=== PATIENT | male | born 1975 ===

== ENCOUNTER 2018-05-28 13:03 | Emergency (ER) | payer MEDICAID ==
[2018-05-28 13:10] VITALS: BMI 26.6
[2018-05-28 13:13] VITALS: RESP 18
[2018-05-28] MEDS ORDERED: Sodium Chloride 0.9% 1,000 ML IV STA ×2 (13:23→14:40)
--- NOTE | 2018-05-28 13:42 | ED PDOC ---
Arrival/HPI - General Historian: Patient - History of Present Illness Time/Duration: 4-6 hours Symptom Onset: Gradual Symptom Course: Worsening Quality: Cramping Severity Level: 9 Activities at Onset: Significant Context: Work (factory) <Wali Rivers - Last Filed: 05/28/18 18:40> <Miky Rdz - Last Filed: 05/28/18 19:15> - General Chief Complaint: GI Problem Time Seen by Provider: 05/28/18 13:15 - History of Present Illness Narrative History of Present Illness (Text): 05/28/18 13:08 CC: Abdominal Pain HPI: Mr. Moyer is a 42 year old male with no significant past medical history who presents with crampy abdominal pain LLQ>RLQ. 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 Patient states there was little air in the truck and it was very hot. Patient said most recent vomit was red, but reports he ingested a peñaloza gatorade before vomiting. Patient also reports ingesting red peppers yesterday. Patient does not think he was vomiting blood. Patient decided to leave work and call the ambulance. Patient reports urine has been yellow without hematuria and formed BM without hematochezia. Patient reports weakness, headaches, dizziness, nausea, palpitations, but denies chest pain, back pain, fevers, chills, vision changes, leg pain, recent travel, sick contacts and weight changes. PMHx: denies PSHx: denies All: NKDA Social: 1 pint of Vodka daily x 6 years, denies tobacco and substance abuse Fam hx: Arthritis in the family, denies CVA, RI, Heart disease Meds: denies PCP: Dr. Hemanth Solomon (Wali Rivers) Past Medical History - Provider Review Nursing Documentation Reviewed: Yes - Travel History Have you recently traveled outside [place] w/in the past 3 mons?: No - Infectious Disease Hx of Infectious Diseases: None - Psychiatric Hx Substance Use: No - Anesthesia Hx Anesthesia: No <Wali Rivers - Last Filed: 05/28/18 18:40> Family/Social History - Physician Review Nursing Documentation Reviewed: Yes Family/Social History: Other (Arthritis) Smoking Status: Never Smoked Hx Alcohol Use: Yes Hx Substance Use: No <Wali Rivers - Last Filed: 05/28/18 18:40> Allergies/Home Meds <Wali Rivers - Last Filed: 05/28/18 18:40> <Miky Rdz - Last Filed: 05/28/18 19:15> Allergies/Adverse Reactions: Allergies No Known Allergies Allergy (Verified 05/28/18 13:10) Review of Systems - Physician Review All systems were reviewed & negative as marked: Yes - Review of Systems Constitutional: Fatigue Eyes: Normal. absent: Vision Changes ENT: Normal Respiratory: Normal Cardiovascular: Palpitations. absent: Chest Pain Gastrointestinal: Abdominal Pain, Nausea, Vomiting, Appetite Changes, Anorexia. absent: Stool Changes, Constipation, Diarrhea Musculoskeletal: Arthralgias Skin: Normal. absent: Rash, Pruritis Neurological: Headache, Dizziness. absent: Seizure Endocrine: Diaphoresis. absent: Polyuria, Polydipsia Hemo/Lymphatic: Normal Psychiatric: Anxiety <Wali Rivers - Last Filed: 05/28/18 18:40> Physical Exam Vital Signs Reviewed: Yes Temperature: Afebrile Blood Pressure: Hypertensive (mild) Pulse: Tachycardic Respiratory Rate: Normal Appearance: Positive for: Uncomfortable Pain Distress: Moderate Mental Status: Positive for: Alert and Oriented X 3 - Systems Exam Head: Present: Atraumatic, Normocephalic Pupils: Present: PERRL Extroacular Muscles: Present: EOMI Conjunctiva: Present: Normal Mouth: Present: Dry Neck: Present: Normal Range of Motion. No: JVD Respiratory/Chest: Present: Clear to Auscultation, Decreased Breath Sounds. No : Respiratory Distress, Accessory Muscle Use, Retracting, Tender to Palpation Cardiovascular: Present: Regular Rate and Rhythm, Normal S1, S2, Tachycardic Abdomen: Present: Tenderness (soft, LUQ>RUQ), Normal Bowel Sounds. No: Distention, Peritoneal Signs, Rebound, Guarding, McBurney's Point Tender, Rovsing's Sign Present Back: No: CVA Tenderness Upper Extremity: Present: Normal Inspection (no tremors noted) Lower Extremity: Present: Normal Inspection Neurological: Present: GCS=15, CN II-XII Intact, Speech Normal Skin: Present: Warm, Normal Color, Diaphoretic. No: Rashes Psychiatric: Present: Alert, Oriented x 3, Normal Insight, Normal Concentration <Wali Rivers - Last Filed: 05/28/18 18:40> Vital Signs Temp Pulse Resp BP Pulse Ox 05/28/18 19:05 98.2 F 93 H 18 140/74 96 05/28/18 18:25 98.2 F 93 H 18 140/74 96 05/28/18 13:04 97.8 F 117 H 18 130/92 H 97 Medical Decision Making <Wali Rivers - Last Filed: 05/28/18 18:40> <Miky Rdz - Last Filed: 05/28/18 19:15> ED Course and Treatment: 05/28/18 13:32 Impression: 42 year old male with no past medical history who presents with ETOH intoxication/withdrawal vs dehydration vs heat exhaustion Plan: IVF NS bolus ETOH, Salicylate and Acetaminophen serum levels CMP Cardiac isoenzymes Chest Portable X-ray Mg Coag studies CXR EKG Fingerstick glucose UA, UDS 05/28/18 14:06 CXR: No active disease Serum ETOH level 217 EKG: sinus tachy @101 bpm, no ST or T wave changes Ordered Zofran 4 mg IVP for ongoing nausea. QTc 492 - will continue to monitor 05/28/18 14:41 On reassessment, sustained tachycardia at 103 bpm despite fluids and improved abdominal pain. Ordered 2nd NS bolus and CT abd/pelvis without contrast for sustained abdominal pain. Ordered Librium 50 PO for early ETOH withdrawal symptoms as patient has been hospitalized for previous withdrawal episodes. 05/28/18 15:23 Patient has had previous admissions to [facility], and has a separate has multiple admissions for ETOH withdrawal in the past. Started on banana bag 1 L and monitoring. 05/28/18 16:17 CT abd/pelvis without contrast: Mural thickening in terminal ileum consistent with ileitis or IBD. Some fecalization. Colon small in caliber and decompressed. 05/28/18 16:53 Nausea resolving. Tremors present in hand. 1 mg Ativan and Pepcid 20 mg given. Will continue to monitor. 05/28/18 17:48 Patient is AAOx3. Hypertensive 150/98 and mildly tachycardic at 98. Conversation transpired in which possibility of admission was broached with patient. Risks of withdrawal and associated symptoms discussed in detail. Patient likely resistant to admission. 05/28/18 18:40 Patient has decided to sign out against medical advice. Discussed with patient risks and benefits of staying and being monitored, including further workup from abnormal CT abdomen and possibility of ETOH withdrawal progression and its sequalae. Patient questions answered in full and to patient satisfaction. Patient instructed not to operate heavy machinery or drive a vehicle. Patient instructed to return to nearest emergency department should symptoms worsen or reoccur. (Wali Rivers) 05/28/18 14:45 Patient states he was working on a car in a hot environment for several hours and became nauseous, light headed with mild abdominal cramping. On exam, patient appears tremulous, tachycardic and has mild diffused abdominal tenderness. Patient admits to drinking alcohol daily. Initial exam consistent with possible heat exhaustion with likely component of alcohol use/abuse. In agreement with resident note, which includes further HPI details. Patient was seen and evaluated with resident, came up with plan and treatment together. Patient is neurologically intact with no slurred speech. No chest pain or shortness of breath. No focal motor or sensory deficits. Steady gait. Alert and oriented with serial exams. He admits to past history of alcohol withdrawal. Librium administered. IV fluids given. Abnormal CT findings reviewed with patient. He states abdominal pain has improved. I have advised admission for monitoring of symptoms, risks of alcohol withdrawal , abnormal CT findings. He has been advised of recommendations and abnormal findings in laymen's terms. He is alert, not intoxicated, neuro intact with re-exam, expresses understanding of recommendations and risks of signing out against medical advice. He has been advised not to drive or operate heavy machinery. He states he understands this and that he does not drive or operate heavy machinery. 05/28/18 19:11 (Miky Rdz) - Lab Interpretations Lab Results: 05/28/18 13:25 05/28/18 13:25 Lab Results 05/28/18 13:25: PT 11.7, INR 1.03, APTT 23.7 L 05/28/18 13:25: WBC 5.8, RBC 5.03, Hgb 17.3, Hct 47.0, MCV 93.4, MCH 34.4, MCHC 36.8, RDW 11.3 L, Plt Count 321, MPV 9.3, Gran % 57.6, Lymph % (Auto) 36.4 H, [place] % (Auto) 5.0, Eos % (Auto) 0.3 L, Baso % (Auto) 0.7, Gran # 3.32, Lymph # ( Auto) 2.1, [place] # (Auto) 0.3, Eos # (Auto) 0.0, Baso # (Auto) 0.04 05/28/18 13:25: Salicylates < 1 L, Acetaminophen < 10.0 L 05/28/18 13:25: Alcohol, Quantitative 217 H 05/28/18 13:25: Sodium 143, Potassium 4.2, Chloride 96 L, Carbon Dioxide 17 L, Anion Gap 34 H, BUN 14, Creatinine 1.8 H, Est GFR ( Amer) 51, Est GFR ( Non-Af Amer) 42, Random Glucose 112 H, Calcium 9.8, Magnesium 1.7, Total Bilirubin 1.1, AST 66 H, ALT 67 H, Alkaline Phosphatase 79, Lactate Dehydrogenase 698, Total Creatine Kinase 319 H, CK-MB (CK-2) 1.8, CK-MB (CK-2) % Cancelled, Troponin I < 0.01, Total Protein 9.7 H, Albumin 5.6 H, Globulin 4.1 , Albumin/Globulin Ratio 1.4 - RAD Interpretation Radiology Orders: 05/28/18 13:23 CHEST PORTABLE [RAD] Stat 05/28/18 14:40 ABDOMEN & PELVIS [ABD & PELVIS W/O PO OR IV CONT] [CT] Stat - Medication Orders Current Medication Orders: Discontinued Medications Chlordiazepoxide (Librium) 50 mg PO STAT STA PRN Reason: Protocol Stop: 05/28/18 14:40 Last Admin: 05/28/18 15:13 Dose: 50 mg Famotidine (Pepcid) 20 mg IVP STAT STA Stop: 05/28/18 16:54 Sodium Chloride (Sodium Chloride 0.9%) 1,000 mls @ 1,000 mls/hr IV .Q1H STA Stop: 05/28/18 14:22 Last Admin: 05/28/18 13:41 Dose: 1,000 mls/hr eMAR Start Stop Document 05/28/18 13:41 SRE (Rec: 05/28/18 13:42 SRE [id number]) Intravenous Solution Start Date 05/28/18 Start Time 13:42 End Date 05/28/18 End time 14:45 Total Infusion Time 63 Sodium Chloride (Sodium Chloride 0.9%) 1,000 mls @ 999 mls/hr IV .Q1H1M STA Stop: 05/28/18 15:40 Last Admin: 05/28/18 15:15 Dose: 999 mls/hr eMAR Start Stop Document 05/28/18 15:15 SRE (Rec: 05/28/18 15:16 SRE [id number]) Intravenous Solution Start Date 05/28/18 Start Time 15:15 End Date 05/28/18 End time 16:15 Total Infusion Time 60 Folic Acid 1 mg/ Thiamine HCl 100 mg/ Multivitamins/Vitamin C 10 ml/ Dextrose 1 ,011.2 mls @ 100 mls/hr IV .Q10H7M STA Stop: 05/29/18 01:38 Lorazepam (Ativan) 1 mg IVP ONCE ONE Stop: 05/28/18 16:54 Ondansetron HCl (Zofran Inj) 4 mg IVP STAT STA Stop: 05/28/18 14:15 Last Admin: 05/28/18 14:22 Dose: 4 mg IVP Administration Document 05/28/18 14:22 SRE (Rec: 05/28/18 14:22 SRE [id number]) Charges for Administration # of IVP Administrations 1 <Wali Rivers - Last Filed: 05/28/18 18:40> - PA / SALES ESTIMATOR / Resident Statement / has reviewed & agrees with the documentation as recorded. / has examined the patient and agrees with the treatment plan. - Scribe Statement The provider has reviewed the documentation as recorded by the Scribe <Miky Rdz - Last Filed: 05/28/18 19:15> - Scribe Statement Blade Montano. All medical record entries made by the Scribe were at my direction and personally dictated by me. I have reviewed the chart and agree that the record accurately reflects my personal performance of the history, physical exam, medical decision making, and the department course for this patient. I have also personally directed, reviewed, and agree with the discharge instructions and disposition. (Miky Rdz) Disposition/Present on Arrival - Present on Arrival Any Indicators Present on Arrival: No History of DVT/PE: No History of Uncontrolled Diabetes: No Urinary Catheter: No History of Decub. Ulcer: No History Surgical Site Infection Following: None - Disposition Have Diagnosis and Disposition been Completed?: Yes Disposition Time: 18:49 <Wali Rivers - Last Filed: 05/28/18 18:40> - Disposition Have Diagnosis and Disposition been Completed?: Yes Patient Plan: Discharge <Miky Rdz - Last Filed: 05/28/18 19:15> - Disposition Diagnosis: Heat exhaustion, Alcohol abuse, Abdominal pain Disposition: AGAINST MEDICAL ADVICE Condition: GUARDED Referrals: Hemanth Solomon MD [Primary Care Provider] - Follow up with primary Forms: [employer] ([place])
--- NOTE | 2018-05-28 13:50 | RAD ---
Date of service: 05/28/2018 HISTORY: weakness COMPARISON: No prior. FINDINGS: LUNGS: No active pulmonary disease. PLEURA: No significant pleural effusion identified, no pneumothorax apparent. CARDIOVASCULAR: Normal. OSSEOUS STRUCTURES: No significant abnormalities. VISUALIZED UPPER ABDOMEN: Normal. OTHER FINDINGS: None. IMPRESSION: No active disease.
[2018-05-28 13:56] LABS: BASO # 0.04 K/mm3 (0.0-2.0); BASO % 0.7 % (0.0-3.0); EOS % 0.3 % (1.5-5.0); GRAN # 3.32 (1.4-6.5); GRAN % 57.6 % (50.0-68.0); HEMOGLOBIN 17.3 g/dL (14.0-18.0); LYMPH # 2.1 (1.2-3.4); LYMPH % 36.4 % (22.0-35.0); MEAN CELL VOLUME 93.4 fl (80.0-105.0); MEAN CORPUSCULAR HEMOGLOBIN 34.4 pg (25.0-35.0); MEAN CORPUSCULAR HGB CONC 36.8 g/dl (31.0-37.0); MEAN PLATELET VOLUME 9.3 fl (7.0-11.0); MONO # 0.3 (0.1-0.6); RBC 5.03 10^6/uL (3.5-6.1); RED CELL DISTRIBUTION WIDTH 11.3 % (11.5-14.5); WHITE BLOOD COUNT 5.8 10^3/ul (4.5-11.0)
[2018-05-28 14:08] LABS: ALB/GLOB RATIO 1.4 (1.1-1.8); ALBUMIN 5.6 g/dL (3.0-4.8); ALT/SGPT 67 U/L (7-56); AST/SGOT 66 U/L (17-59); BLOOD UREA NITROGEN 14 mg/dL (7-21); CALCIUM 9.8 mg/dL (8.4-10.5); GFR NON-AFRICAN AMERICAN 42
[2018-05-28 14:09] LABS: ACETAMINOPHEN < 10.0 ug/ml (10.0-20.0); SALICYLATE < 1 mg/dL (2.0-20.0)
[2018-05-28 14:21] LABS: INR 1.03; PARTIAL THROMBOPLASTIN TIME 23.7 Seconds (25.1-36.5); PROTHROMBIN TIME 11.7 SECONDS (9.4-12.5)
[2018-05-28 14:26] LABS: CK-MB 1.8 ng/mL (0.0-3.6); TROPONIN I < 0.01 ng/mL
[2018-05-28] MEDS ORDERED: Folic Acid 1 MG, Thiamine 100 MG, Multivitamin (MVI) 10 ML in Dextrose 5% In Water 1,00... IV STA (15:32)
--- NOTE | 2018-05-28 16:11 | CT ---
Date of service: 05/28/2018 PROCEDURE: CT Abdomen and Pelvis without intravenous contrast HISTORY: sustained abdominal pain COMPARISON: None. TECHNIQUE: Without contrast. Contrast dose: Radiation dose: Total exam DLP = 571 mGy-cm. This CT exam was performed using one or more of the following dose reduction techniques: Automated exposure control, adjustment of the mA and/or kV according to patient size, and/or use of iterative reconstruction technique. FINDINGS: LOWER THORAX: Unremarkable. LIVER: Unremarkable. No gross lesion or ductal dilatation. GALLBLADDER AND BILE DUCTS: Unremarkable. PANCREAS: Unremarkable. No gross lesion or ductal dilatation. SPLEEN: Unremarkable. ADRENALS: Unremarkable. No mass. KIDNEYS AND URETERS: Unremarkable. No hydronephrosis. No solid mass. VASCULATURE: Unremarkable. No aortic aneurysm. BOWEL: There is mural thickening in the terminal ileum consistent with ileitis or inflammatory bowel disease. There is also some fecalization. The colon is small in caliber and decompressed APPENDIX: Unremarkable. Normal appendix. PERITONEUM: Unremarkable. No free fluid. No free air. LYMPH NODES: Unremarkable. No enlarged lymph nodes. BLADDER: Unremarkable. REPRODUCTIVE: Unremarkable. BONES: No acute fracture. OTHER FINDINGS: None. IMPRESSION: There is mural thickening in the terminal ileum consistent with ileitis or inflammatory bowel disease. There is also some fecalization. The colon is decompressed and small in caliber.
[2018-05-28 19:02] VITALS: BP 140/74; PULSE 93; TEMP 98.2; O2SAT 96
--- NOTE | 2018-05-28 21:27 | CARD ---
APPROVED REPORT Date of service: 05/28/2018 EKG Measurement Heart [id number] <Conclusion> Sinus tachycardia Otherwise normal ECG
== END 2018-05-28 19:04 | disposition left against medical advice (07) ==
LOC: MERGE 13:03 → ED 13:03
DX: T67.5XXA Heat exhaustion, unspecified, initial encounter (principal); R10.32 Left lower quadrant pain; F10.10 Alcohol abuse, uncomplicated
CPT/HCPCS: 71045; 74176; 80053; 80320; 80329; 82550; 82553; 83615; 83735; 84484; 85025; 85610; 85730; 93005; 96361; 96374; 99283; J2405; J7030